=== PATIENT | male | born 1970 | race Caucasian/White ===

== ENCOUNTER → 2016-08-02 | Outpatient (CLI) | payer OTHER ==
--- NOTE | 2016-08-02 16:40 | KCIC ---
PROCEDURE MRI lumbar spine without contrast. HISTORY Left lumbar radiculopathy, low back pain, symptoms for years TECHNIQUE Multiplanar, multi sequential, non contrast MR imaging was performed of the lumbar spine. COMPARISON None FINDINGS There appears to be transitional anatomy. For the purpose of this report, the most inferior fully formed intervertebral disc space is considered L5-S1, rudimentary intervertebral disc space at what is considered S1-S2. Lumbar vertebral body stature and AP alignment are maintained. There is mild to moderate degenerative disc disease greater posteriorly at L5-S1, minimally at L4-5, and mild disc desiccation L3-4. Conus terminates normally at L1. There is no significant focal marrow edema. There is a large hemangioma of the right L3 vertebral body. L3-L4: There is mild to moderate facet hypertrophic change and mild buckling of the ligamentum flavum. There is negligible disc osteophyte complex. Spinal canal and neural foramina are adequate. L4-5: There is moderate to severe facet hypertrophic change, fluid in the facet articulations bilaterally. There is moderate buckling of the ligamentum flavum. Neural foramina are adequate. There is mild narrowing of the far lateral recesses greater on the left. L5-S1: There is mild facet hypertrophic change. There is negligible disc osteophyte complex. Spinal canal and neural foramina are adequate. IMPRESSION 1. 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 For the purpose of this report, the most inferior fully formed intervertebral disc space is considered L5-S1, rudimentary intervertebral disc space at what is considered S1-S2. 2. There is mild to moderate degenerative disc disease L5-S1, minimally at L4-5 and L3-4. 3. There is mild, left greater than right lateral recess stenosis at L4-5. Lumbar neural foramina are not significantly narrowed. 4. There is facet hypertrophic change greatest at L4-5, fluid in the facet articulations bilaterally at this level. Electronically signed by: Azam Valadez MD (Aug 02, 2016 16:38:48)
== END | disposition home or self-care (01) ==
LOC: KCIC MRI 15:56
PROVIDERS: ATTEND Nurse Practitioner Family
DX: M54.16 Radiculopathy, lumbar region (principal); M48.06 Spinal stenosis, lumbar region; M51.37 Other intervertebral disc degeneration, lumbosacral region
CPT/HCPCS: 72148